=== PATIENT | female | born 1970 | race Two or more races ===

== ENCOUNTER → 2025-05-15 | Outpatient (CLI) | payer OTHER, SELFPAY ==
[2025-05-15 13:13] LABS: Hematocrit 45.4 % (37-47); Hemoglobin 15.4 g/dL (12.0-15.0); Immature Granulocytes Count 0.020 X10^3/uL (0.0-0.0); Mean Corp Hgb Conc 33.9 g/dL (32-36); Mean Corpuscular Volume 93.4 fL (81-99); Mean Platelet Vol. 12.1 fl (6.2-12.0); NRBC Flagged by Analyzer 0 % (0-5); Platelet Count 296 K/mm3 (150-450); RBC Distribution Width CV 13.4 % (11.6-14.6); RBC Distribution Width SD 46.2 fl (35.1-43.9); Red Blood Count 4.86 M/mm3 (4.2-5.4); White Blood Count 6.5 K/mm3 (4.4-11.0)
[2025-05-15 14:05] LABS: CORTISOL AM 14.40 ug/dL (6.02-18.40)
[2025-05-16 04:07] LABS: PROGESTERONE 0.2 ng/mL (.)
== END | disposition home or self-care (01) ==
LOC: LABSPEC 12:49
PROVIDERS: Referring Provider Nurse Practitioner Family; Visit Provider Nurse Practitioner Family
DX: R63.5 Abnormal weight gain (principal); R53.82 Chronic fatigue, unspecified; R61 Generalized hyperhidrosis; R53.1 Weakness; R59.0 Localized enlarged lymph nodes; R68.81 Early satiety; H53.143 Visual discomfort, bilateral; R14.0 Abdominal distension (gaseous); R11.0 Nausea; M13.80 Other specified arthritis, unspecified site; R27.9 Unspecified lack of coordination; M79.10 Myalgia, unspecified site; G44.221 Chronic tension-type headache, intractable; R20.2 Paresthesia of skin; R48.8 Other symbolic dysfunctions; G51.8 Other disorders of facial nerve; G25.0 Essential tremor; F32.A Depression, unspecified; F41.9 Anxiety disorder, unspecified; R45.4 Irritability and anger; L20.9 Atopic dermatitis, unspecified; L29.9 Pruritus, unspecified
CPT/HCPCS: 82533; 82627; 82670; 84144; 84403; 85025; 82626